=== PATIENT | male | born 1940 | race Caucasian/White ===

== ENCOUNTER 2023-09-20 19:39 | Inpatient (IN) | payer MEDICARE, BC ==
[~2023-09-20] VITALS: Ht 177.8 cm; Wt 98.9 kg
[2023-09-20] MEDS ORDERED: [UNRECOGNIZED DRUG - CODE] (20:07)
[2023-09-20 21:13] LABS: BASOPHILS # (AUTO) 0.1 K/UL (0.0-0.2); BASOPHILS % (AUTO) 1.3 % (0.0-2.0); EOSINOPHILS # (AUTO) 0.4 K/uL (0.0-0.7); HEMATOCRIT 41.7 % (36.7-47.1); HEMOGLOBIN 14.2 g/dL (12.5-16.3); LYMPHOCYTES # (AUTO) 1.1 K/uL (0.8-4.8); LYMPHOCYTES % (AUTO) 15.3 % (20.5-51.5); MEAN CORPUSCULAR HEMOGLOBIN 32.6 uug (23.8-33.4); MEAN CORPUSCULAR HGB CONC 34 g/dL (32.5-36.3); MEAN CORPUSCULAR VOLUME 95.5 fL (73.0-96.2); MONOCYTES # (AUTO) 0.9 K/uL (0.1-1.30); MONOCYTES % (AUTO) 13.2 % (0.0-11.0); NEUTROPHILS # (AUTO) 4.5 K/uL (1.8-8.9); NEUTROPHILS % (AUTO) 64.2 % (38.5-71.5); PLATELET COUNT (AUTO) 203 K/uL (152-348); RED BLOOD CELL COUNT(AUTO) 4.36 MIL/uL (4.06-5.63); RED CELL DISTRIBUTION WIDTH 13.9 % (12.1-16.2)
[2023-09-20 21:17] LABS: DIFFERENTIAL COMMENT 1
[2023-09-20 21:24] LABS: CALCIUM 8.9 mg/dL (8.5-10.1); CARBON DIOXIDE 26 mmol/L (21-32); CHLORIDE 104 mmol/L (98-107); CREATININE 0.9 mg/dL (0.6-1.3); GLUCOSE 102 mg/dL (74-106); POTASSIUM 3.9 mmol/L (3.5-5.1); SODIUM SERUM 139 mmol/L (136-145); UREA NITROGEN, BLOOD 28 mg/dL (7-18)
[2023-09-20 21:27] LABS: AMMONIA < 10 umol/L (11-32)
[2023-09-20 21:32] LABS: ETHANOL < 3 MG/DL (0-10)
[2023-09-20 21:33] LABS: ACETAMINOPHEN < 10.0 ug/mL (10-30); ALANINE AMINOTRANSFERASE 27 U/L (16-63); ALBUMIN 3.1 g/dL (3.4-5.0); ALKALINE PHOSPHATASE 78 U/L (50-136); ASPARTATE AMINOTRANSFERASE 7 U/L (15-37); BILIRUBIN,DIRECT 0.1 mg/dL (0.0-0.2); BILIRUBIN,TOTAL 0.2 mg/dL (0.2-1.0); TOTAL PROTEIN, SERUM 6.6 g/dL (6.4-8.2)
[2023-09-20 21:36] LABS: THYROID STIMULATING HORMONE 2.124 mIU/mL (0.358-3.740)
[2023-09-20 22:22] LABS: *BILIRUBIN,URIN NEGATIVE (NEGATIVE); *BLOOD, URINE NEGATIVE (NEGATIVE); *CLARITY,URINE CLEAR (CLEAR); *COLOR,URINE YELLOW (YELLOW); *KETONES,URINE 1+ (NEGATIVE); *PROTEIN,URINE NEGATIVE (NEGATIVE); *UROBILINOGEN,URINE 0.2 E.U./dl (NORMAL); LEUKOCYTE ESTERASE ,URINE NEGATIVE (NEGATIVE); NITRITE, URINE NEGATIVE (NEGATIVE); PH,URINE 5.5 (5.0-8.0); UGLUCOSE NEGATIVE (NEGATIVE)
[2023-09-20 22:23] LABS: *AMPHETAMINE, URINE NEGATIVE (NEGATIVE); *BARBITURATE, URINE NEGATIVE (NEGATIVE); *BENZODIAZEPINE, URINE NEGATIVE (NEGATIVE); *CANNABINOID, URINE POSITIVE (NEGATIVE); *COCCAINE, URINE NEGATIVE (NEGATIVE); *OPIATE, URINE NEGATIVE (NEGATIVE); *PHENCYCLIDINE SCREEN,URINE NEGATIVE (NEGATIVE); FENTANYL, URINE NEGATIVE (NEGATIVE)
[2023-09-20 22:36] LABS: BACTERIA,URINE NONE SEEN /HPF (NONE SEEN); SQUAMOUS EPITHELIAL CELL,UR FEW /HPF (NONE SEEN)
[2023-09-20 22:59] LABS: RBC,URINE 0-3 /HPF (0-3)
[2023-09-21] MEDS ORDERED: MIDO2.5T PO (01:18)
[2023-09-21] MEDS ORDERED: DOCU-286 PO (01:18)
[2023-09-21] MEDS ORDERED: MELA5TAB PO (01:18)
[2023-09-21] MEDS ORDERED: DIVA125T32 PO (01:18)
[2023-09-21] MEDS ORDERED: DULO60CA45 PO (01:18)
[2023-09-21] MEDS ORDERED: METO25TA3 PO (01:18)
[2023-09-21] MEDS ORDERED: METH1TAB69 PO (01:18)
[2023-09-21] MEDS ORDERED: ASPI81TA31 PO (01:18)
[2023-09-21] MEDS ORDERED: LORA-259 PO ×2 (01:18)
[2023-09-21] MEDS ORDERED: MEMA28CA PO (01:18)
[2023-09-21 02:00] VITALS: BP 99/78; TEMP 98.3; O2SAT 99
[2023-09-21] MEDS ORDERED: MAG HYDROX/AL HYDROX/SIMETH 30 ML LIQUID UDC PO PRN (02:30)
[2023-09-21] MEDS ORDERED: MAGNESIUM HYDROXIDE 30 ML LIQUID UDC PO PRN (02:30)
[2023-09-21] MEDS: BLOOD SUGAR DIAGNOSTIC 1 EACH STRIP VI ONE (02:33)
[2023-09-21] MEDS: LORAZEPAM 1 MG TABLET PO PRN (02:56)
[2023-09-21 07:59] VITALS: BP 127/66; TEMP 98.2; O2SAT 96
[2023-09-21] MEDS: DIVALPROEX 125 MG TABLET.DR PO SCH (13:16)
[2023-09-21 15:33] VITALS: BP 99/58; TEMP 98; O2SAT 98
[2023-09-21] MEDS ORDERED: Methenamine Hippurate 1 GM) PO SCH (17:00)
[2023-09-21] MEDS ORDERED: MIDODRINE HCL 2.5 MG TABLET PO SCH (17:00)
[2023-09-21] MEDS: DOCUSATE SODIUM 100 MG CAPSULE PO SCH (17:19)
[2023-09-21 20:00] VITALS: BP 134/68; TEMP 98; O2SAT 93
[2023-09-21] MEDS: TEMAZEPAM 7.5 MG CAPSULE PO PRN (21:19)
[2023-09-21] MEDS: ACETAMINOPHEN 325 MG TABLET PO PRN (21:19)
[2023-09-21] MEDS: ATORVASTATIN 40 MG TABLET PO SCH (21:19)
[2023-09-22] MEDS: ASPIRIN 81 MG TAB.CHEW PO SCH (08:47)
[2023-09-22] MEDS: METOPROLOL SUCCINATE XL 25 MG TAB.SR.24H PO SCH (08:49)
[2023-09-22] MEDS ORDERED: METOPROLOL SUCCINATE XL 25 MG TAB.SR.24H PO SCH (09:00)
[2023-09-22 16:31] VITALS: BP 127/99; TEMP 98.3; O2SAT 98
[2023-09-22 20:00] VITALS: BP 119/85; TEMP 98.7; O2SAT 96
[2023-09-23 07:50] VITALS: BP 112/62; TEMP 98.2; O2SAT 96
[2023-09-23 16:35] VITALS: BP 135/87; TEMP 98; O2SAT 97
[2023-09-23 20:00] VITALS: BP 126/88; TEMP 98.8; O2SAT 98
[2023-09-24 07:57] VITALS: BP 121/65; TEMP 98.4; O2SAT 97
[2023-09-24] MEDS: DIVALPROEX 250 MG TABLET.DR PO SCH (12:45)
[2023-09-24] MEDS ORDERED: DIVALPROEX 125 MG TABLET.DR PO SCH (13:00)
[2023-09-24 13:38] VITALS: BP 119/80
[2023-09-24 13:40] VITALS: BP 122/77
[2023-09-24 13:41] VITALS: BP 134/65
[2023-09-24 16:46] VITALS: BP 143/62; TEMP 98.1; O2SAT 97
[2023-09-24 17:44] LABS: THYROID STIMULATING HORMONE 1.359 mIU/mL (0.358-3.740)
[2023-09-24 20:05] VITALS: BP 128/64; TEMP 98.1; O2SAT 96
[2023-09-25 07:55] VITALS: BP 120/76; TEMP 98.6; O2SAT 97
[2023-09-25 08:39] LABS: BASOPHILS % (AUTO) 0.5 % (0.0-2.0); EOSINOPHILS # (AUTO) 0.3 K/uL (0.0-0.7); EOSINOPHILS % (AUTO) 4.1 % (0.0-7.0); HEMATOCRIT 42.9 % (36.7-47.1); HEMOGLOBIN 14.8 g/dL (12.5-16.3); LYMPHOCYTES # (AUTO) 1.3 K/uL (0.8-4.8); LYMPHOCYTES % (AUTO) 19.3 % (20.5-51.5); MEAN CORPUSCULAR HGB CONC 34 g/dL (32.5-36.3); MEAN CORPUSCULAR VOLUME 95.9 fL (73.0-96.2); MONOCYTES # (AUTO) 0.9 K/uL (0.1-1.30); MONOCYTES % (AUTO) 12.9 % (0.0-11.0); NEUTROPHILS # (AUTO) 4.2 K/uL (1.8-8.9); NEUTROPHILS % (AUTO) 63.2 % (38.5-71.5); PLATELET COUNT (AUTO) 195 K/uL (152-348); RED BLOOD CELL COUNT(AUTO) 4.47 MIL/uL (4.06-5.63); RED CELL DISTRIBUTION WIDTH 13.8 % (12.1-16.2); WHITE BLOOD COUNT (AUTO) 6.6 K/uL (3.6-10.2)
[2023-09-25 08:48] LABS: ALANINE AMINOTRANSFERASE 33 U/L (16-63); ALBUMIN 3.1 g/dL (3.4-5.0); ALKALINE PHOSPHATASE 77 U/L (50-136); ASPARTATE AMINOTRANSFERASE 20 U/L (15-37); BILIRUBIN,TOTAL 1.1 mg/dL (0.2-1.0); CALCIUM 8.8 mg/dL (8.5-10.1); CARBON DIOXIDE 31 mmol/L (21-32); CHLORIDE 106 mmol/L (98-107); GLUCOSE 97 mg/dL (74-106); MAGNESIUM 2.1 mg/dL (1.8-2.4); POTASSIUM 3.9 mmol/L (3.5-5.1); SODIUM SERUM 142 mmol/L (136-145); TOTAL PROTEIN, SERUM 6.7 g/dL (6.4-8.2); UREA NITROGEN, BLOOD 15 mg/dL (7-18)
[2023-09-25 15:35] VITALS: BP 136/55; TEMP 98.6; O2SAT 98
[2023-09-25 19:57] VITALS: BP 120/66; TEMP 98.3; O2SAT 95
[2023-09-26 08:08] VITALS: BP 135/81; TEMP 98; O2SAT 98
[2023-09-26 15:41] VITALS: BP 139/86; TEMP 98; O2SAT 95
[2023-09-26 20:17] VITALS: BP 134/84; TEMP 98.1; O2SAT 95
[2023-09-27 07:52] VITALS: BP 129/84; TEMP 98.2; O2SAT 98
[2023-09-27 15:55] VITALS: BP 105/70; TEMP 98.3; O2SAT 98
[2023-09-27 20:00] VITALS: BP 91/72; TEMP 98.2; O2SAT 91
[2023-09-28 07:55] VITALS: BP 141/62; TEMP 98.2; O2SAT 96
[2023-09-28] MEDS ORDERED: DIVALPROEX 250 MG TABLET.DR PO SCH (13:00)
[2023-09-28 15:13] VITALS: BP 109/73; TEMP 98; O2SAT 98
[2023-09-28] MEDS: DIVALPROEX SPRINKLE 125 MG CAP.SPRINK PO SCH (17:02)
[2023-09-28 20:00] VITALS: BP 98/42; TEMP 98; O2SAT 96
[2023-09-29 07:48] VITALS: BP 90/48; TEMP 98.2; O2SAT 97
[2023-09-29] MEDS: MIDODRINE HCL 2.5 MG TABLET PO PRN (09:51)
[2023-09-29 16:22] VITALS: BP 120/81; TEMP 98; O2SAT 97
[2023-09-29 21:25] VITALS: BP 123/62; TEMP 98; O2SAT 98
[2023-09-30 08:09] VITALS: BP 134/68; TEMP 98.2; O2SAT 97
[2023-09-30 18:39] LABS: *CLARITY,URINE Y (CLEAR); *COLOR,URINE C (YELLOW)
[2023-09-30 18:40] LABS: *BILIRUBIN,URIN NEGATIVE (NEGATIVE); *BLOOD, URINE 1+ (NEGATIVE); *KETONES,URINE NEGATIVE (NEGATIVE); *PROTEIN,URINE 2+ (NEGATIVE); *UROBILINOGEN,URINE 0.2 E.U./dl (NORMAL); LEUKOCYTE ESTERASE ,URINE 2+ (NEGATIVE); NITRITE, URINE NEGATIVE (NEGATIVE); PH,URINE 8.5 (5.0-8.0); UGLUCOSE NEGATIVE (NEGATIVE)
[2023-09-30 18:42] LABS: BACTERIA,URINE MODERATE /HPF (NONE SEEN); SQUAMOUS EPITHELIAL CELL,UR NONE SEEN /HPF (NONE SEEN); WBC,URINE 50-80 /HPF (0-3)
[2023-09-30 20:01] VITALS: BP 130/66; TEMP 97.7; O2SAT 96
[2023-10-01 07:57] VITALS: BP 130/63; TEMP 97.8; O2SAT 97
[2023-10-01 10:07] LABS: BASOPHILS # (AUTO) 0.1 K/UL (0.0-0.2); BASOPHILS % (AUTO) 1.6 % (0.0-2.0); EOSINOPHILS # (AUTO) 0.2 K/uL (0.0-0.7); EOSINOPHILS % (AUTO) 2.8 % (0.0-7.0); HEMATOCRIT 43.6 % (36.7-47.1); HEMOGLOBIN 14.4 g/dL (12.5-16.3); LYMPHOCYTES # (AUTO) 1.5 K/uL (0.8-4.8); LYMPHOCYTES % (AUTO) 17.6 % (20.5-51.5); MEAN CORPUSCULAR HGB CONC 33 g/dL (32.5-36.3); MEAN CORPUSCULAR VOLUME 96.8 fL (73.0-96.2); MONOCYTES # (AUTO) 1.2 K/uL (0.1-1.30); MONOCYTES % (AUTO) 13.9 % (0.0-11.0); NEUTROPHILS # (AUTO) 5.5 K/uL (1.8-8.9); NEUTROPHILS % (AUTO) 64.1 % (38.5-71.5); PLATELET COUNT (AUTO) 204 K/uL (152-348); RED BLOOD CELL COUNT(AUTO) 4.51 MIL/uL (4.06-5.63); RED CELL DISTRIBUTION WIDTH 13.6 % (12.1-16.2); WHITE BLOOD COUNT (AUTO) 8.6 K/uL (3.6-10.2)
[2023-10-01 10:09] LABS: DIFFERENTIAL COMMENT 1
[2023-10-01 10:22] LABS: ALBUMIN 3.3 g/dL (3.4-5.0); BILIRUBIN,TOTAL 0.7 mg/dL (0.2-1.0); CALCIUM 8.8 mg/dL (8.5-10.1); CREATININE 1.1 mg/dL (0.6-1.3); MAGNESIUM 2.3 mg/dL (1.8-2.4); PHOSPHOROUS 3.4 mg/dL (2.5-4.9); POTASSIUM 4.1 mmol/L (3.5-5.1); TOTAL PROTEIN, SERUM 7.2 g/dL (6.4-8.2)
[2023-10-01] MEDS: CEphaleXIN 500 MG CAPSULE PO SCH (11:06)
[2023-10-01 16:32] VITALS: BP 130/63; TEMP 97.8; O2SAT 96
[2023-10-01 19:56] VITALS: BP 124/78; TEMP 98.1; O2SAT 100
[2023-10-02 07:50] VITALS: BP 143/90; TEMP 98.6; O2SAT 98
[2023-10-02 15:19] VITALS: BP 148/93; TEMP 98.2; O2SAT 98
[2023-10-02] MEDS ORDERED: HYDROCORTISONE 0.5% CREAM 28.35 GM TUBE TOP PRN (16:00)
[2023-10-02 19:58] VITALS: BP 146/78; TEMP 98.1; O2SAT 96
[2023-10-03 07:47] VITALS: BP 118/67; TEMP 98.1; O2SAT 98
[2023-10-03 08:28] LABS: BASOPHILS % (AUTO) 0.5 % (0.0-2.0); EOSINOPHILS # (AUTO) 0.2 K/uL (0.0-0.7); HEMATOCRIT 44.9 % (36.7-47.1); HEMOGLOBIN 15.4 g/dL (12.5-16.3); LYMPHOCYTES # (AUTO) 1.4 K/uL (0.8-4.8); MEAN CORPUSCULAR HEMOGLOBIN 32.3 uug (23.8-33.4); MEAN CORPUSCULAR HGB CONC 34 g/dL (32.5-36.3); MEAN CORPUSCULAR VOLUME 94.2 fL (73.0-96.2); MONOCYTES # (AUTO) 1.1 K/uL (0.1-1.30); MONOCYTES % (AUTO) 14.7 % (0.0-11.0); NEUTROPHILS # (AUTO) 4.9 K/uL (1.8-8.9); NEUTROPHILS % (AUTO) 63.8 % (38.5-71.5); PLATELET COUNT (AUTO) 212 K/uL (152-348); RED BLOOD CELL COUNT(AUTO) 4.77 MIL/uL (4.06-5.63); RED CELL DISTRIBUTION WIDTH 13.7 % (12.1-16.2); WHITE BLOOD COUNT (AUTO) 7.6 K/uL (3.6-10.2)
[2023-10-03 08:31] LABS: DIFFERENTIAL COMMENT 1
[2023-10-03 08:42] LABS: ALANINE AMINOTRANSFERASE 28 U/L (16-63); ALBUMIN 2.9 g/dL (3.4-5.0); ALKALINE PHOSPHATASE 82 U/L (50-136); ASPARTATE AMINOTRANSFERASE 12 U/L (15-37); BILIRUBIN,TOTAL 0.5 mg/dL (0.2-1.0); CALCIUM 8.7 mg/dL (8.5-10.1); CARBON DIOXIDE 24 mmol/L (21-32); CHLORIDE 107 mmol/L (98-107); CREATININE 0.9 mg/dL (0.6-1.3); GLUCOSE 120 mg/dL (74-106); MAGNESIUM 2.2 mg/dL (1.8-2.4); POTASSIUM 4.3 mmol/L (3.5-5.1); SODIUM SERUM 139 mmol/L (136-145); TOTAL PROTEIN, SERUM 6.6 g/dL (6.4-8.2); UREA NITROGEN, BLOOD 21 mg/dL (7-18); VALPROIC ACID 71 ug/mL (50-100)
[2023-10-03] MEDS: MIDODRINE HCL 2.5 MG TABLET PO SCH (09:18)
[2023-10-03] MEDS: FLUDROCORTISONE ACETATE 0.1 MG TABLET PO SCH (09:19)
[2023-10-03] MEDS: METOPROLOL SUCCINATE XL 25 MG TAB.SR.24H PO SCH (09:20)
[2023-10-03 15:04] VITALS: BP 112/53; TEMP 98.2; O2SAT 98
[2023-10-03 16:46] VITALS: BP 132/74
[2023-10-04] MEDS ORDERED: LIDOCAINE HCL 1% 20 ML VIAL ONE (15:03)
[2023-10-04] MEDS ORDERED: BUPIVACAINE 0.25% 30 ML VIAL ONE (15:04)
[2023-10-10] MEDS ORDERED: DIVA125C2 PO (13:38)
== END 2023-10-03 17:13 | DRG 885 ==
LOC: ER 19:43 → GPS 09-21 00:34
PROVIDERS: ADMIT Psychiatry & Neurology Psychosomatic Medicine; ATTEND Nurse Practitioner Family
DX: F39 Unspecified mood [affective] disorder (principal); G92.8 Other toxic encephalopathy; E44.1 Mild protein-calorie malnutrition; I47.10 Supraventricular tachycardia, unspecified; N39.0 Urinary tract infection, site not specified; F02.83 Dementia in other diseases classified elsewhere, unspecified severity, with mood disturbance; F02.818 Dementia in other diseases classified elsewhere, unspecified severity, with other behavioral disturbance; F02.84 Dementia in other diseases classified elsewhere, unspecified severity, with anxiety; E78.5 Hyperlipidemia, unspecified; E88.09 Other disorders of plasma-protein metabolism, not elsewhere classified; I10 Essential (primary) hypertension; I48.91 Unspecified atrial fibrillation; K59.00 Constipation, unspecified; Z87.891 Personal history of nicotine dependence; Z88.0 Allergy status to penicillin; F25.9 Schizoaffective disorder, unspecified; F32.9 Major depressive disorder, single episode, unspecified; R42 Dizziness and giddiness; F41.9 Anxiety disorder, unspecified; Z68.31 Body mass index [BMI] 31.0-31.9, adult; R55 Syncope and collapse; B96.89 Other specified bacterial agents as the cause of diseases classified elsewhere; Z66 Do not resuscitate; N40.0 Benign prostatic hyperplasia without lower urinary tract symptoms; Z20.822 Contact with and (suspected) exposure to COVID-19
CPT/HCPCS: 36415; 70450; 71045; 80164; 82747; 83735; 83921; 84100; 84207; 84443; 84484; 85014; 85025; 85730; 93005; 93307; 93880; G0480; J3490